=== PATIENT | female | born 1960 | race African-American/Black ===

== ENCOUNTER 2016-06-02 16:43 | Observation (INO) | payer BC, OTHER ==
--- NOTE | 2016-06-02 16:50 | ER Document Report ---
ED Medical Screen (RME) - General Stated Complaint: SLURRED SPEECH,DIFFICULTY TALKING Notes: 55 yo female presents with dizziness, slurred speech and slight expressive aphasia. symptoms started approximately an hour [employer]. + hx/o HTN, no diabetes no facial droop or extremity weakness. speech is thick and deliberate - Related Data Allergies/Adverse Reactions: sulfamethoxazole [From ] Allergy (Verified 11/26/13 21:01) trimethoprim [From Decra] Allergy (Verified 11/26/13 21:01) Past Medical History - Past Medical History Cardiac Medical History: Reports: Hx Hypertension Endocrine Medical History: Reports: Hx Diabetes Mellitus Type 1 - Immunizations Hx Diphtheria, Pertussis, Tetanus Vaccination: Yes
[2016-06-02 17:26] LABS: PARTIAL THROMBOPLASTIN TIME 29.8 SEC (23.5-35.8); PROTHROMBIN TIME 11.9 SEC (11.4-15.4)
[2016-06-02 17:27] LABS: ABSOLUTE BASOPHILS # (AUTO) 0.1 10^3/uL (0.0-0.2); ABSOLUTE EOSINOPHILS # (AUTO) 0.1 10^3/uL (0.0-0.6); ABSOLUTE LYMPHOCYTES (AUTO) 2.9 10^3/uL (0.5-4.7); ABSOLUTE MONOCYTES (AUTO) 0.6 10^3/uL (0.1-1.4); ABSOLUTE NEUT (AUTO) 3.6 10^3/uL (1.7-8.2); BASOPHILS % (AUTO) 0.8 % (0-2); HEMATOCRIT 35.9 % (36.0-47.0); HEMOGLOBIN 11.5 g/dL (12.0-15.5); HGB HCT DIFFERENCE -1.4; LYMPHOCYTES % (AUTO) 39.5 % (13-45); MEAN CORPUSCULAR HEMOGLOBIN 24.2 pg (27.0-33.4); MEAN CORPUSCULAR HGB CONC 32.1 g/dL (32.0-36.0); MEAN CORPUSCULAR VOLUME 75 fl (80-97); MONOCYTES % (AUTO) 8.8 % (3-13); RED BLOOD COUNT 4.77 10^6/uL (3.72-5.28); RED CELL DISTRIBUTION WIDTH 15.1 % (11.5-14.0); SEGMENTED NEUTROPHILS % (AUTO) 48.9 % (42-78); WHITE BLOOD COUNT 7.4 10^3/uL (4.0-10.5)
[2016-06-02 17:45] LABS: ALANINE AMINOTRANSFERASE 37 U/L (9-52); ALBUMIN 4.5 g/dL (3.5-5.0); ALKALINE PHOSPHATASE 86 U/L (38-126); ANION GAP 15 (5-19); ASPARTATE AMINO TRANSFERASE 31 U/L (14-36); BILIRUBIN,TOTAL 0.4 mg/dL (0.2-1.3); BLOOD UREA NITROGEN 12 mg/dL (7-20); CALCIUM 9.4 mg/dL (8.4-10.2); CARBON DIOXIDE 26 mmol/L (22-30); CHLORIDE 97 mmol/L (98-107); CREATINE KINASE 74 U/L (30-135); CREATININE RESULT 0.85 mg/dL (0.52-1.25); GLUCOSE 113 mg/dL (75-110); POTASSIUM 3.8 mmol/L (3.6-5.0); SODIUM 137.5 mmol/L (137-145); TOTAL PROTEIN 8.2 g/dL (6.3-8.2)
[2016-06-02] MEDS ORDERED: BENZTROPINE MESYLATE 1 MG TABLET PO ONE (17:54)
[2016-06-02 17:57] LABS: CREATINE KINASE MB < 0.22 ng/mL (<4.55); TROPONIN I < 0.012 ng/mL
--- NOTE | 2016-06-02 18:07 | ER Document Report ---
ED General - General Chief Complaint: Stroke Like Symptoms Stated Complaint: SLURRED SPEECH,DIFFICULTY TALKING TRAVEL OUTSIDE OF THE [place] IN LAST 30 DAYS: No - HPI Patient complains to provider of: slurred speech difficulty in talking express of aphasia Notes: Patient coming in for stress of aphasia slurred speech. States this happened around 4:00 this afternoon. Patient also states that anytime she has mild difficulty walking. Patient denies any recent head trauma denies any fevers chills nausea vomiting. Patient states has no clear history is positive for hypertension patient also admits to having increasing her Wellbutrin dose that she started today patient is also on Cymbalta and Ativan. Upon my initial examination room patient is alert oriented was stuttering speech. - Related Data Allergies/Adverse Reactions: sulfamethoxazole [From Decra] Allergy (Verified 11/26/13 21:01) trimethoprim [From Decra] Allergy (Verified 11/26/13 21:01) Past Medical History - Social History Smoking Status: Never Smoker Chew tobacco use (# tins/day): No Frequency of alcohol use: None Drug Abuse: None Family History: Reviewed & Not Pertinent Patient has suicidal ideation: No Patient has homicidal ideation: No - Past Medical History Cardiac Medical History: Reports: Hx Hypertension Endocrine Medical History: Reports: Hx Diabetes Mellitus Type 1 Renal/ Medical History: Denies: Hx Peritoneal Dialysis - Immunizations Hx Diphtheria, Pertussis, Tetanus Vaccination: Yes Hx Pneumococcal Vaccination: 01/02/13 Review of Systems - Review of Systems Constitutional: No symptoms reported EENT: No symptoms reported Cardiovascular: No symptoms reported Respiratory: No symptoms reported Gastrointestinal: No symptoms reported Genitourinary: No symptoms reported Female Genitourinary: No symptoms reported Musculoskeletal: No symptoms reported Skin: No symptoms reported Hematologic/Lymphatic: No symptoms reported Neurological/Psychological: Other - Expressive aphasia stuttering speech -: Yes All other systems reviewed and negative Physical Exam - Vital signs Vitals: Resp 16 06/02/16 16:52 Interpretation: Normal - General General appearance: Appears well, Alert - HEENT Head: Normocephalic, Atraumatic Eyes: Normal Pupils: PERRL - Respiratory Respiratory status: No respiratory distress Chest status: Nontender Breath sounds: Normal Chest palpation: Normal - Cardiovascular Rhythm: Regular Heart sounds: Normal auscultation Murmur: No - Abdominal Inspection: Normal Distension: No distension Bowel sounds: Normal Tenderness: Nontender Organomegaly: No organomegaly - Back Back: Normal, Nontender - Extremities General upper extremity: Normal inspection, Nontender, Normal color, Normal ROM , Normal temperature General lower extremity: Normal inspection, Nontender, Normal color, Normal ROM , Normal temperature, Normal weight bearing. No: Uriel's sign - Neurological Neuro grossly intact: Yes Cognition: Normal Orientation: AAOx4 Karnack Coma Scale Eye Opening: Spontaneous Bc Coma Scale Verbal: Oriented Karnack Coma Scale Motor: Obeys Commands Bc Coma Scale Total: 15 Speech: Normal Motor strength normal: LUE, RUE, LLE, RLE Sensory: Normal - Psychological Associated symptoms: Normal affect, Normal mood - Skin Skin Temperature: Warm Skin Moisture: Dry Skin Color: Normal Course - Re-evaluation Re-evalutation: 06/02/16 18:06 Patient presents with expressive aphasia patient also states she was having some difficulty walking at around 1600 hrs. Evaluation patient patient having a score approximately 1. Mostly was due to aphasia. I did discuss thrombolytics however patient declined. Upon reevaluation at this time patient' s symptoms have improved. Am concerned patient may have interaction with some of her medications. Patient was given a dose of Cogentin. Did refer the patient for admission to the hospital service. 06/02/16 20:34 - Vital Signs Vital signs: Temp Pulse Resp BP Pulse Ox 90 27 H 143/93 H 100 06/02/16 17:05 06/02/16 19:00 06/02/16 18:22 06/02/16 19:00 - Laboratory Result Diagrams: 06/02/16 17:13 06/02/16 17:13 Laboratory results interpreted by me: 06/02/16 06/02/16 06/02/16 17:13 17:13 17:18 Hgb 11.5 L Hct 35.9 L MCV 75 L MCH 24.2 L RDW 15.1 H Chloride 97 L Glucose 113 H POC Glucose 113 H Critical Care Note - Critical Care Note Total time excluding time spent on procedures (mins): 35 Comments: Time spent for stroke evaluation Discharge - Discharge Clinical Impression: Anxiety CVA (cerebral vascular accident) Qualifiers: CVA mechanism: unspecified Qualified Code(s): I63.9 - Cerebral infarction, unspecified Hypertension Qualifiers: Hypertension type: essential hypertension Qualified Code(s): I10 - Essential ( primary) hypertension Condition: Good Disposition: ADMITTED OBSERVATION Admitting Provider: [facility] Admitted: IM ED NIH Stroke Scale - NIH Stroke Scale *: 1. NIH scale should be completed with appropriate accompanying assessment tools. *: 2. The NIH should reflect what the patient is capable of doing and should not be coached by the clinician. 1a. Level of Consciousness: 0=Alert;keenly responsive -: 1=Drowsy -: 2=Obtunded -: 3=Coma/unresponsive or reflex to noxious stimuli. 1a. Responses: 0 1b. Orientation Questions: a. What month is it? -: b. How old are you? -: 0=Answers both questions correctly. -: 1=Answers one question correctly or patient is intubated or has orotracheal trauma. -: 2=Answers neither question correctly. 1b. Responses: 0 1c. Response to commands: a. Open and close eyes? -: b. Uc Architect and release hand? -: Credit is given despite weakness. Demonstration of task is permitted. Substitute command if hands cannot be used. -: 0=Performs both tasks correctly -: 1=Performs one task correctly -: 2=Performs neither task correctly 1c. Responses: 0 2. Gaze: Establish eye contact and instruct patient to "Follow my finger" -: 0=Normal -: 1=Partial gaze palsy. Gaze is abnormal in one or both eyes, but where forced deviation or total gaze paresis is not present. -: 2=Forced deviation or total gaze paresis. 2. Responses: 0 3. Visual Garrison: Sees fingers in all four quadrants. -: 0=No visual loss. -: 1=Partial hemianopsia. -: 2=Complete hemianopsia. -: 3=Bilateral hemianopsia (including Cortical blindness) 3. Responses: 0 4. Facial Movement: Instruct patient to: -: a. Show me your teeth -: b. Raise your eyebrows -: c. Close your eyes -: d. Smile -: 0=Normal symmetrical movement -: 1=Minor paralysis (flattened nasolabial fold, asymmetry on smiling). -: 2=Partial paralysis (total or near total paralysis of lower face). -: 3=Complete paralysis of upper and lower face 4. Responses: 0 5. Motor functions (left arm): Alternate sides and extend each arm with palms down (90 degrees if sitting or 45 degrees for supine). -: 0=No drift;limb holds for full 10 seconds. -: 1=Drift; limb holds but drifts down before full 10 seconds, but does not hit bed. -: 2=Some effort against gravity; limb cannot get to or maintain position. -: 3=No effort against gravity; limb falls. -: 4=No movement. -: UN=Amputation, joint fusion, explain in comments. 5. Responses (left arm): 0 5. Motor Functions (right arm): Alternate sides and extend each arm with palms down (90 degrees if sitting or 45 degrees for supine). -: 0=No drift;limb holds for full 10 seconds. -: 1=Drift; limb holds but drifts down before full 10 seconds, but does not hit bed. -: 2=Some effort against gravity; limb cannot get to or maintain position. -: 3=No effort against gravity; limb falls. -: 4=No movement. -: UN=Amputation, joint fusion, explain in comments. 5. Responses (right arm): 0 6. Motor Functions (left leg): With patient lying supine, alternate sides and extend each leg (30 degrees always while supine). -: 0=No drift, leg holds position for full 5 seconds -: 1=Drift; leg falls before full 5 seconds but does not hit bed. -: 2=Some effort against gravity, leg falls to bed but some effort against gravity. -: 3=No effort against gravity, leg falls to bed immediately. -: 4=No movement. -: UN=Amputation, joint fusion; explain in comments. 6. Responses (left leg): 0 6. Motor Functions (right leg): With patient lying supine, alternate sides and extend each leg (30 degrees always while supine). -: 0=No drift, leg holds position for full 5 seconds -: 1=Drift; leg falls before full 5 seconds but does not hit bed. -: 2=Some effort against gravity, leg falls to bed but some effort against gravity. -: 3=No effort against gravity, leg falls to bed immediately. -: 4=No movement. -: UN=Amputation, joint fusion; explain in comments. 6. Responses (right leg): 0 7. Limb Ataxia: With eyes open instruct patient to: -: a. "Touch your finger to your nose". -: b. "Touch your heel to your mcgee" -: 0=Absent -: 1=Present in one limb. -: 2=Present in two limbs. -: UN=Amputation or joint fusion; explain in comments. 7. Responses: 0 8. Sensory: Test sensation using pinprick or noxious stimuli. Test as many body parts as possible. -: 0=Normal;no sensory loss -: 1=Mile to moderate sensory loss (patient feels pin prick but is less sharp on affected side). -: 2=Severe or total sensory loss. 8. Responses: 0 9. Best Language: Instruct patient to: -: a. "Describe what you see in this picture." -: b. "Name the items in this picture." -: c. "Read these sentences." -: 0=No aphasia, normal -: 1=Mild to moderate aphasia. -: 2=Severe aphasia -: 3=Mute, global aphasia, no usable speech or auditory comprehension. 9. Responses: 1 10. Articulation, Dysarthia: Instruct patient to: -: "Read these words" or "Repeat these words" -: 0=Normal -: 1=Mild to moderate; patient may slur some words but can be understood without difficulty. -: 2=Severe; patients speech so slurred as to be unintelligible in the absence of dysphasia. -: UN=Intubated or other physical barrier, explain in comments. 10. Responses: 0 11. Extinction or inattention: 0=No abnormality -: 1= Visual, tactile, auditory, spatial, or personal inattention or extinction to bilateral simulation in one or the sensory modalities. -: 2=Profound raymon-inattention or raymon-inattention to more than one modality; does not recognize own hand. 11. Responses: 0 Total Score: 1
[2016-06-02] MEDS ORDERED: ACETAMINOPHEN 325 MG TABLET PO PRN (18:34)
--- NOTE | 2016-06-02 18:56 | PDOC H&P ---
History of Present Illness Patient complains of: Blurred vision and some expressive aphasia. 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 Patient felt weak and she returned to her desk. She had some difficulty with speaking and symptoms consistent with expressive a fascia. Patient denied have any dysarthria or dysphasia however. She denied any weakness however she did have some right hand weakness when I examined her. The patient's symptoms had improved from when they started approximately 2 hours prior to presentation and continued to improve. Because the improvement was felt that she was not a candidate for TPA in light of her head CT with improving symptoms. The patient was concerned that she recently increased her Wellbutrin to 450 mg daily just yesterday. Patient has been anxious and depressed but reports her mood is same today as it was yesterday. She denies any loss of consciousness. She denies any loss of vision but did have blurred vision. She denied any shortness of breath or chest pain. She denies any loss of consciousness or urinary incontinence. Past Medical History Cardiac Medical History: Reports: Hypertension Pulmonary Medical History: Reports: None EENT Medical History: Reports: None Neurological Medical History: Reports: None Renal/ Medical History: Reports: None Malignancy Medical History: Reports: None GI Medical History: Reports: None Musculoskeltal Medical History: Reports: None Skin Medical History: Reports: None Psychiatric Medical History: Reports: None Traumatic Medical History: Reports: None Hematology: Reports: None Infectious Medical History: Reports: None Past Surgical History Past Surgical History: Reports: Orthopedic Surgery - Cervical spine surgery 2 Social History Information Source: Patient Smoking Status: Never Smoker Frequency of Alcohol Use: Rare Hx Recreational Drug Use: No Drugs: None - Advance Directive Resuscitation Status: Full Code Family History Family History: Patient's mother at age 71. She had coronary artery disease as well as Kawasaki's disease. Father is 74 alive still and has coronary artery disease as well as a pacemaker. Parental Family History Reviewed: Yes Children Family History Reviewed: No Sibling(s) Family History Reviewed.: No Medication/Allergy Home Medications: Meclizine HCl [Antivert 25 mg Tablet] 25 mg PO TID #20 tablet 11/26/13 Allergies/Adverse Reactions: sulfamethoxazole [From Septra] Allergy (Verified 11/26/13 21:01) trimethoprim [From Septra] Allergy (Verified 11/26/13 21:01) Review of Systems Constitutional: ABSENT: chills, fever(s), headache(s), weight gain, weight loss Eyes: PRESENT: visual disturbances - Blurred vision Ears: ABSENT: hearing changes Cardiovascular: ABSENT: chest pain, dyspnea on exertion, edema, orthropnea, palpitations Respiratory: ABSENT: cough, hemoptysis Gastrointestinal: ABSENT: abdominal pain, constipation, diarrhea, hematemesis, hematochezia, nausea, vomiting Genitourinary: ABSENT: dysuria, hematuria Musculoskeletal: ABSENT: joint swelling Integumentary: ABSENT: rash, wounds Neurological: PRESENT: as per HPI Psychiatric: PRESENT: anxiety, depression Endocrine: ABSENT: cold intolerance, heat intolerance, polydipsia, polyuria Hematologic/Lymphatic: ABSENT: easy bleeding, easy bruising Physical Exam General appearance: PRESENT: no acute distress, well-developed, well-nourished Head exam: PRESENT: atraumatic, normocephalic Eye exam: PRESENT: conjunctiva pink, EOMI, PERRLA. ABSENT: scleral icterus Ear exam: PRESENT: normal external ear exam Mouth exam: PRESENT: moist, tongue midline Neck exam: ABSENT: carotid bruit, JVD, lymphadenopathy, thyromegaly Respiratory exam: PRESENT: clear to auscultation juliette. ABSENT: rales, rhonchi, wheezes Cardiovascular exam: PRESENT: RRR. ABSENT: diastolic murmur, rubs, systolic murmur Pulses: PRESENT: normal dorsalis pedis pul Vascular exam: PRESENT: normal capillary refill GI/Abdominal exam: PRESENT: normal bowel sounds, soft. ABSENT: distended, guarding, mass, organolmegaly, rebound, tenderness Rectal exam: PRESENT: deferred Extremities exam: ABSENT: calf tenderness, clubbing, pedal edema Neurological exam: PRESENT: alert, awake, oriented to person, oriented to place , oriented to time, oriented to situation, motor sensory deficit, other - Patient has some mild expressive aphasia. Her strength is 4 out of 5 in the right upper extremity to 5 and 5 metabolic other extremities. Psychiatric exam: PRESENT: appropriate affect Skin exam: PRESENT: dry, intact, warm. ABSENT: cyanosis, rash Results Laboratory Results: 06/02/16 17:13 06/02/16 17:13 06/02/16 06/02/16 17:13 17:13 WBC 7.4 RBC 4.77 Hgb 11.5 L Hct 35.9 L MCV 75 L MCH 24.2 L MCHC 32.1 RDW 15.1 H Plt Count 188 Seg Neutrophils % 48.9 Lymphocytes % 39.5 Monocytes % 8.8 Eosinophils % 2.0 Basophils % 0.8 Absolute Neutrophils 3.6 Absolute Lymphocytes 2.9 Absolute Monocytes 0.6 Absolute Eosinophils 0.1 Absolute Basophils 0.1 Sodium 137.5 Potassium 3.8 Chloride 97 L Carbon Dioxide 26 Anion Gap 15 BUN 12 Creatinine 0.85 Est GFR ( Amer) > 60 Est GFR (Non-Af Amer) > 60 Glucose 113 H Calcium 9.4 Total Bilirubin 0.4 AST 31 ALT 37 Alkaline Phosphatase 86 Total Protein 8.2 Albumin 4.5 06/02/16 06/02/16 17:13 17:13 Creatine Kinase 74 CK-MB (CK-2) < 0.22 Troponin I < 0.012 Impressions: Chest X-Ray 06/02/16 16:53 IMPRESSION: NO ACUTE RADIOGRAPHIC FINDING IN THE CHEST. Head CT 06/02/16 16:53 IMPRESSION: No acute intracranial abnormalities were identified. Other findings as noted above. Assessment & Plan - Diagnosis (1) CVA (cerebral vascular accident) Is this a current diagnosis for this admission?: YesPlan: Patient has some right arm weakness along with expressive aphasia. This is all very suggestive that she has probably had a CVA or TIA. Patient's head CT was unremarkable and her symptoms were improving and she is not a candidate for TPA. We Will start the patient on aspirin and will obtain an MRI, echocardiogram, carotid Dopplers. Patient did just increase her dose of Wellbutrin yesterday and she is concerned this may be related to that increase of medications however we'll treat as if this is a CVA. (2) Hypertension Is this a current diagnosis for this admission?: YesPlan: Patient has been on triamterene as an outpatient. We'll hold for now. (3) Anxiety Is this a current diagnosis for this admission?: YesPlan: Patient just increased her Wellbutrin dose. We'll start back on her psychiatric medications tomorrow. - Time Time Spent: 50 to 70 Minutes - Plan Summary Plan Summary: We'll admit as observation as I anticipate his require less than two midnight hospital stay.
[2016-06-02] MEDS ORDERED: ENOXAPARIN SODIUM INJ 40 MG/0.4 ML DISP.SYRIN SUBCUT ONE (19:30)
[2016-06-02 20:18] LABS: APPEARANCE,URINE CLEAR; BILIRUBIN,URINE NEGATIVE (NEGATIVE); GLUCOSE, URINE NEGATIVE (NEGATIVE); KETONES,URINE NEGATIVE (NEGATIVE); LEUKOCYTE ESTERASE,URINE NEGATIVE (NEGATIVE); NITRITE,URINE NEGATIVE (NEGATIVE); PROTEIN,URINE NEGATIVE (NEGATIVE); URINE SPECIFIC GRAVITY 1.005; UROBILINOGEN,URINE NEGATIVE mg/dL (<2.0)
[2016-06-02 20:31] LABS: URINE BARBITURATES SCREEN NEGATIVE; URINE METHADONE SCREEN NEGATIVE; URINE OPIATES LOW NEGATIVE; URINE PHENCYCLIDINE SCREEN NEGATIVE
--- NOTE | 2016-06-02 20:34 | EKG REPORT ---
SEVERITY:- BORDERLINE ECG - SINUS RHYTHM BORDERLINE T WAVE ABNORMALITIES BORDERLINE PROLONGED QT INTERVAL : Confirmed by: Elan Reynolds MD 02-Jun-2016 20:34:03
[2016-06-02] MEDS ORDERED: ATORVASTATIN CALCIUM 40 MG TABLET PO SCH (22:00)
[2016-06-02] MEDS: FAMOTIDINE 20 MG TABLET PO SCH (22:38)
[2016-06-03 07:23] LABS: ABSOLUTE EOSINOPHILS # (AUTO) 0.2 10^3/uL (0.0-0.6); ABSOLUTE LYMPHOCYTES (AUTO) 2.4 10^3/uL (0.5-4.7); ABSOLUTE MONOCYTES (AUTO) 0.8 10^3/uL (0.1-1.4); ABSOLUTE NEUT (AUTO) 3.6 10^3/uL (1.7-8.2); BASOPHILS % (AUTO) 0.4 % (0-2); EOSINOPHILS % (AUTO) 2.6 % (0-6); HEMATOCRIT 34.3 % (36.0-47.0); HEMOGLOBIN 10.7 g/dL (12.0-15.5); HGB HCT DIFFERENCE -2.2; LYMPHOCYTES % (AUTO) 34.4 % (13-45); MEAN CORPUSCULAR HEMOGLOBIN 23.7 pg (27.0-33.4); MEAN CORPUSCULAR HGB CONC 31.1 g/dL (32.0-36.0); MEAN CORPUSCULAR VOLUME 76 fl (80-97); RED CELL DISTRIBUTION WIDTH 15.2 % (11.5-14.0); SEGMENTED NEUTROPHILS % (AUTO) 51.6 % (42-78)
[2016-06-03 07:43] LABS: CHLORIDE 102 mmol/L (98-107); GLUCOSE 91 mg/dL (75-110); POTASSIUM 4.1 mmol/L (3.6-5.0)
[2016-06-03 07:44] LABS: ANION GAP 11 (5-19); BLOOD UREA NITROGEN 9 mg/dL (7-20); CALCIUM 9.7 mg/dL (8.4-10.2); CARBON DIOXIDE 30 mmol/L (22-30); CREATININE RESULT 0.87 mg/dL (0.52-1.25); SODIUM 142.8 mmol/L (137-145)
[2016-06-03] MEDS ORDERED: ENOXAPARIN SODIUM INJ 40 MG/0.4 ML DISP.SYRIN SUBCUT SCH (08:00)
--- NOTE | 2016-06-03 09:56 | XCELERA REPORT ---
[address] [address] Transthoracic Echocardiogram Report Name: HERNAN GREEN Age: 55 yrs Gender: Female : 1960 Patient Status: Inpatient Patient Location: [id number]\S\336\S\A Study Date: 06/03/2016 07:46 AM Height: 64 in Weight: 215 lb BSA: 2.0 m2 Procedure: A two-dimensional transthoracic echocardiogram with color flow and Doppler was performed. Study Quality: Fair. Reason For Study: CVA History: CVA. Ordering Physician: WERNER ROSE Performed By: John Ann Interpretation Summary There is no obvious cardiac source of embolus noted on this transthoracic echocardiogram. Follow-up with a KATEY is suggested if cardiac source is still suspected. The left ventricle is normal in size. There is normal left ventricular wall thickness. LV EF is 45% Left ventricular systolic function is mildly reduced. Doppler measurements suggest impaired left ventricular relaxation, which is associated with grade I/IV or mild diastolic dysfunction There is mild global hypokinesis of the left ventricle. There is no thrombus. The right ventricle is normal in size and function. The left atrial size is normal. There is no evidence of mitral valve prolapse. There is no mitral valve stenosis. There is a mild amount of mitral regurgitation There is no aortic valve stenosis There is no LVOT obstruction. No aortic regurgitation is present. There is no tricuspid stenosis. There is a mild amount of tricuspid regurgitation Right ventricular systolic pressure is normal. RVSP is 27 mm of Hg , with RA mean of 5. There is no pericardial effusion. There is no obvious cardiac source of embolus noted on this transthoracic echocardiogram. Follow-up with a KATEY is suggested if cardiac source is still suspected MMode/2D Measurements \T\ Calculations RVDd: 2.3 cm LVIDd: 5.2 cm FS: 24.2 % Ao root diam: 2.8 cm IVSd: 0.84 cm LVIDs: 3.9 cm EDV(Teich): 128.7 ml LVPWd: 0.86 cm ESV(Teich): 67.2 ml Ao root area: 6.2 cm2 EF(Teich): 47.8 % LA dimension: 3.6 cm Doppler Measurements \T\ Calculations MV E max marialuisa: MV P1/2t max marialuisa: Ao V2 max: LV V1 max P.0 cm/sec 49.0 cm/sec 146.6 cm/sec 3.0 mmHg MV A max marialuisa: MV P1/2t: 52.8 msec Ao max PG: LV V1 max: 67.1 cm/sec 8.6 mmHg 87.0 cm/sec MV E/A: 0.70 MVA(P1/2t): 4.2 cm2 MV dec slope: 271.6 cm/sec2 MV dec time: 0.19 sec PA V2 max: PI end-d marialuisa: TR max marialuisa: 72.1 cm/sec 118.1 cm/sec 234.8 cm/sec PA max PG: TR max P.1 mmHg 22.1 mmHg Left Ventricle The left ventricle is normal in size. There is normal left ventricular wall thickness. LV EF is 45%. Left ventricular systolic function is mildly reduced. Doppler measurements suggest impaired left ventricular relaxation, which is associated with grade I/IV or mild diastolic dysfunction. There is mild global hypokinesis of the left ventricle. There is no thrombus. There is no ventricular septal defect visualized. Right Ventricle The right ventricle is normal in size and function. Atria The right atrium is normal. The left atrial size is normal. The interatrial septum is intact with no evidence for an atrial septal defect. Mitral Valve There is no evidence of mitral valve prolapse. There is no vegetation seen on the mitral valve. There is no mitral valve stenosis. There is a mild amount of mitral regurgitation. Aortic Valve The aortic valve is trileaflet. The aortic valve opens well. There is no aortic valvular vegetation. There is no aortic valve stenosis. There is no LVOT obstruction. No aortic regurgitation is present. Tricuspid Valve There is no tricuspid stenosis. There is a mild amount of tricuspid regurgitation. Right ventricular systolic pressure is normal. RVSP is 27 mm of Hg , with RA mean of 5. Pulmonic Valve There is no pulmonic valvular stenosis. There is a trace amount of pulmonic regurgitation. Great Vessels The aortic root is normal size. Effusions There is no pericardial effusion. : WERNER ROSE > Linda Edouard
[2016-06-03] MEDS ORDERED: ASPIRIN 325 MG TABLET, ENT COATED PO SCH (10:00)
[2016-06-03 11:14] VITALS: BP 127/63
[2016-06-03] MEDS: FAMOTIDINE 20 MG TABLET PO SCH (11:37)
--- NOTE | 2016-06-03 11:46 | PDOC DISCHARGE SUMMARY ---
General - Admit/Disc Date/PCP Admission Date/Primary Care Provider: 06/02/16 18:34 PRASANTH HODGE MD Discharge Date: 06/03/16 - Discharge Diagnosis (1) CVA (cerebral vascular accident) Is this a current diagnosis for this admission?: YesSummary: Patient had a normal MRI with no residual symptoms consistent with a TIA. The possibility this representing a reaction to her anxiety and going up on her Wellbutrin dose also is considered, but is less likely. Her MRI, carotid Doppler, echocardiogram all were unremarkable. (2) Hypertension Is this a current diagnosis for this admission?: Yes (3) Anxiety Is this a current diagnosis for this admission?: YesSummary: she is instructed to decrease her Wellbutrin back to 300 mg daily as she was doing prior to yesterday. - Additional Information Resuscitation Status: Full Code Discharge Diet: Cardiac Discharge Activity: Activity As Tolerated Home Medications: Acyclovir [Acyclovir 400 mg Tablet] 400 mg PO Q12 06/02/16 Bupropion HCl [Wellbutrin Xl 300mg 24hr Tablet] 300 mg PO QAM 06/02/16 Cyclobenzaprine HCl [Flexeril 5 mg Tablet] 5 mg PO TIDP PRN 06/02/16 Duloxetine HCl [Cymbalta] 120 mg PO DAILY 06/02/16 Ibuprofen [Motrin 800 mg Tablet] 800 mg PO TIDP PRN 06/02/16 Lorazepam [Ativan 1 mg Tablet] 1 mg PO Q8HP PRN 06/02/16 Trazodone HCl [Desyrel] 150 mg PO HSP PRN 06/02/16 Aspirin [Ecotrin 325 mg EC Tablet] 325 mg PO DAILY tabec 06/03/16 Atorvastatin Calcium [Lipitor 40 mg Tablet] 40 mg PO QHS #30 tablet 06/03/16 History of Present Illness History of Present Illness: HERNAN GREEN is a 55 year old female with history of hypertension 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 Patient felt weak and she returned to her desk. She had some difficulty with speaking and symptoms consistent with expressive a fascia. Patient denied have any dysarthria or dysphasia however. She denied any weakness however she did have some right hand weakness when I examined her. The patient's symptoms had improved from when they started approximately 2 hours prior to presentation and continued to improve. Because the improvement was felt that she was not a candidate for TPA in light of her head CT with improving symptoms. The patient was concerned that she recently increased her Wellbutrin to 450 mg daily just yesterday. Patient has been anxious and depressed but reports her mood is same today as it was yesterday. She denies any loss of consciousness. She denies any loss of vision but did have blurred vision. She denied any shortness of breath or chest pain. She denies any loss of consciousness or urinary incontinence. Hospital Course Hospital Course: 55-year-old female who presented with some expressive aphasia and weakness. All of these symptoms have resolved. Patient was admitted as a presumed CVA however she has had complete resolution of her symptoms and the MRI shows no acute event. It's felt that she most likely suffered a TIA as the cause. Patient increased her dose of Wellbutrin from 300-450 mg and given her history of anxiety the possibility this represented an anxiety attack is considered but is thought to be less likely. She is treated with an aspirin daily for the possibility this is a TIA and is discharged home. Physical Exam Vital Signs: Temp Pulse Resp BP Pulse Ox 98.2 F 79 18 127/63 H 100 06/03/16 11:09 06/03/16 11:09 06/03/16 11:09 06/03/16 11:09 06/03/16 11:09 Intake & Output 06/02/16 06/03/16 06/04/16 06:59 06:59 06:59 Intake Total 406 Balance 406 Weight 98.5 kg General appearance: PRESENT: no acute distress Eye exam: PRESENT: conjunctiva pink. ABSENT: scleral icterus Mouth exam: PRESENT: moist, tongue midline Neck exam: ABSENT: carotid bruit, JVD, lymphadenopathy, thyromegaly Respiratory exam: PRESENT: clear to auscultation juliette. ABSENT: rales, rhonchi, wheezes Cardiovascular exam: PRESENT: RRR. ABSENT: diastolic murmur, rubs, systolic murmur GI/Abdominal exam: PRESENT: normal bowel sounds, soft. ABSENT: distended, guarding, mass, organolmegaly, rebound, tenderness Extremities exam: ABSENT: calf tenderness, clubbing, pedal edema Neurological exam: PRESENT: alert, awake, oriented to person, oriented to place , oriented to time, oriented to situation, CN II-XII grossly intact. ABSENT: motor sensory deficit Psychiatric exam: PRESENT: appropriate affect Skin exam: PRESENT: dry, intact, warm. ABSENT: cyanosis, rash Results Laboratory Results: 06/03/16 06:40 06/03/16 06:40 06/02/16 06/03/16 06/03/16 19:30 06:40 06:40 WBC 7.0 RBC 4.50 Hgb 10.7 L Hct 34.3 L MCV 76 L MCH 23.7 L MCHC 31.1 L RDW 15.2 H Plt Count 191 Seg Neutrophils % 51.6 Lymphocytes % 34.4 Monocytes % 11.0 Eosinophils % 2.6 Basophils % 0.4 Absolute Neutrophils 3.6 Absolute Lymphocytes 2.4 Absolute Monocytes 0.8 Absolute Eosinophils 0.2 Absolute Basophils 0.0 Sodium 142.8 Potassium 4.1 Chloride 102 Carbon Dioxide 30 Anion Gap 11 BUN 9 Creatinine 0.87 Est GFR ( Amer) > 60 Est GFR (Non-Af Amer) > 60 Glucose 91 Calcium 9.7 Urine Color STRAW Urine Appearance CLEAR Urine pH 7.0 Ur Specific Finley 1.005 Urine Protein NEGATIVE Urine Glucose (UA) NEGATIVE Urine Ketones NEGATIVE Urine Blood NEGATIVE Urine Nitrite NEGATIVE Ur Leukocyte Esterase NEGATIVE Urine WBC (Auto) 0 Urine RBC (Auto) 0 Impressions: Head MRI 06/02/16 00:00 IMPRESSION: Negative for acute or sub-acute infarction. Age-appropriate exam. Chest X-Ray 06/02/16 16:53 IMPRESSION: NO ACUTE RADIOGRAPHIC FINDING IN THE CHEST. Head CT 06/02/16 16:53 IMPRESSION: No acute intracranial abnormalities were identified. Other findings as noted above. Carotid Doppler Study 06/03/16 00:00 IMPRESSION: NO HEMODYNAMICALLY SIGNIFICANT STENOSIS. Qualifiers PATEINT BEING DISCHARGED WITH ANY OF THE FOLLOWING DIAGNOSIS?: Stroke Stroke Pt being discharged on Anti-thrombolytic therapy?: Yes Stroke Pt being discharged on Anti-coagulation therapy?: No Reason(s) for not prescribing Anti-coagulation therapy:: Contraindicated Stroke Pt being discharged on Statins?: Yes Plan Discharge Plan: Patient is discharged home and will follow up with her primary care doctor in 1 week. Time Spent: Less than 30 Minutes
== END 2016-06-03 12:10 | disposition home or self-care (01) ==
LOC: ER 16:43 → EH 18:34 → UNDOADMOB 19:58 → 3S 06-03 05:08
PROVIDERS: ADMIT Internal Medicine; ATTEND Internal Medicine
DX: I63.9 Cerebral infarction, unspecified (principal); I10 Essential (primary) hypertension; F41.9 Anxiety disorder, unspecified
CPT/HCPCS: 93005; 99291; 36415 ×2; 82553; 82962; 82550; 85025 ×2; 85610; 85730; 80048; 80053; 81001; 84484; 80307; 93306; 93880; 70551; 71010; 70450; 93010; 92523; G0378 ×2; J1650; J3490 ×2

== ENCOUNTER 2017-02-23 17:13 | Emergency (ER) | payer BC, OTHER ==
[2017-02-23] MEDS ORDERED: CEFTRIAXONE INJ 250 MG VIAL IM ONE (17:38)
[2017-02-23] MEDS ORDERED: LIDOCAINE 1% INJ-PF (10 MG/ML) 30 ML SDV INFIL ONE (17:38)
[2017-02-23] MEDS ORDERED: AZITHROMYCIN 250 MG TABLET PO ONE (17:38)
--- NOTE | 2017-02-23 19:08 | ER Document Report ---
ED General - General Chief Complaint: Pelvic Pain Stated Complaint: PELVIC PAIN Time Seen by Provider: 02/23/17 17:38 Mode of Arrival: Ambulatory Information source: Patient Notes: 56 yr old female presents with complaints of vaginal discharge or vomiting recent sexual activity notes last time she was sexually active was 2 months ago. Patient admits to previous STD 30 years ago Patient notes discharge is white with foul odor TRAVEL OUTSIDE OF THE [place] IN LAST 30 DAYS: No - HPI Onset: Other Onset/Duration: Persistent Quality of pain: Achy Severity: Mild Pain Level: 1 Associated symptoms: Other Exacerbated by: Denies Relieved by: Denies Similar symptoms previously: No Recently seen / treated by doctor: No - Related Data Allergies/Adverse Reactions: sulfamethoxazole [From Decra] Allergy (Verified 11/26/13 21:01) trimethoprim [From Septra] Allergy (Verified 11/26/13 21:01) Past Medical History - Social History Smoking Status: Never Smoker Cigarette use (# per day): No Chew tobacco use (# tins/day): No Smoking Education Provided: No Frequency of alcohol use: Occasional Drug Abuse: None Family History: Reviewed & Not Pertinent Patient has suicidal ideation: No Patient has homicidal ideation: No - Past Medical History Cardiac Medical History: Reports: Hx Hypertension Endocrine Medical History: Reports: Hx Diabetes Mellitus Type 1 Renal/ Medical History: Denies: Hx Peritoneal Dialysis Psychiatric Medical History: Reports: Hx Depression Past Surgical History: Reports: Hx Orthopedic Surgery - Cervical spine surgery 2, Hx Tubal Ligation - Immunizations Hx Diphtheria, Pertussis, Tetanus Vaccination: Yes Hx Pneumococcal Vaccination: 01/02/13 Review of Systems - Review of Systems Notes: REVIEW OF SYSTEMS: CONSTITUTIONAL : Denies fever, chills, or sweats. Denies recent illness. EENT: Denies eye, ear, throat, or mouth pain or symptoms. Denies nasal or sinus congestion or discharge. Denies throat, tongue, or mouth swelling or difficulty swallowing. CARDIOVASCULAR: Denies chest pain. Denies palpitations or racing or irregular heart beat. Denies ankle edema. RESPIRATORY: Denies cough, cold, or chest congestion. Denies shortness of breath, difficulty breathing, or wheezing. GASTROINTESTINAL: Denies abdominal pain or distention. Denies nausea, vomiting , or diarrhea. Denies blood in vomitus, stools, or per rectum. Denies black, tarry stools. Denies constipation. GENITOURINARY: Denies difficulty urinating, painful urination, burning, frequency, blood in urine, or discharge. FEMALE GENITOURINARY: Admits vaginal discharge or odor MUSCULOSKELETAL: Denies back or neck pain or stiffness. Denies joint pain or swelling. SKIN: Denies rash, lesions or sores. HEMATOLOGIC : Denies easy bruising or bleeding. LYMPHATIC: Denies swollen, enlarged glands. NEUROLOGICAL: Denies confusion or altered mental status. Denies passing out or loss of consciousness. Denies dizziness or lightheadedness. Denies headache. Denies weakness or paralysis or loss of use of either side. Denies problems with gait or speech. Denies sensory loss, numbness, or tingling. Denies seizures. PSYCHIATRIC: Denies anxiety or stress. Denies depression, suicidal ideation, or homicidal ideation. ALL OTHER SYSTEMS REVIEWED AND NEGATIVE. PHYSICAL EXAMINATION: GENERAL: Well-appearing, well-nourished and in no acute distress. HEAD: Atraumatic, normocephalic. EYES: Pupils equal round and reactive to light, extraocular movements intact, conjunctiva are normal. ENT: Nares patent, oropharynx clear without exudates. Moist mucous membranes. NECK: Normal range of motion, supple without lymphadenopathy LUNGS: Breath sounds clear to auscultation bilaterally and equal. No wheezes rales or rhonchi. HEART: Regular rate and rhythm without murmurs ABDOMEN: Soft, nontender, nondistended abdomen. No guarding, no rebound. No masses appreciated. Female : vaginal discharge white Musculoskeletal: Normal range of motion, no pitting or edema. No cyanosis. NEUROLOGICAL: Cranial nerves grossly intact. Normal speech, normal gait. Normal sensory, motor exams PSYCH: Normal mood, normal affect. SKIN: Warm, Dry, normal turgor, no rashes or lesions noted. Dictation was performed using Xsp[employer] voice recognition software Physical Exam - Vital signs Vitals: Temp Pulse Resp BP Pulse Ox 99.1 F 80 18 143/86 H 97 02/23/17 17:16 02/23/17 17:16 02/23/17 17:16 02/23/17 17:16 02/23/17 17:16 Course - Re-evaluation Re-evalutation: 02/23/17 19:20 Patient is noted to have bacteria on wet prep, she will be treated for bacterial vaginosis otherwise no signs of STD at this time, she was treated nonetheless for it prophylactically Patient has no signs of PID After performing a Medical Screening Examination, I estimate there is LOW risk for ACUTE APPENDICITIS, BOWEL OBSTRUCTION, ACUTE CHOLECYSTITIS, PERFORATED DIVERTICULITIS, INCARCERATED HERNIA, PANCREATITIS, PELVIC INFLAMMATORY DISEASE, PERFORATED ULCER, ECTOPIC , or TUBO-OVARIAN ABSCESS, thus I consider the discharge disposition reasonable. Also, there is no evidence or peritonitis , sepsis, or toxicity. I have reevaluated this patient multiple times and no significant life threatening changes are noted. The patient and I have discussed the diagnosis and risks, and we agree with discharging home with close follow-up with the understanding that symptoms and presentations can change. We also discussed returning to the Emergency Department immediately if new or worsening symptoms occur. We have discussed the symptoms which are most concerning (e.g., bloody stool, fever, changing or worsening pain, vomiting) that necessitate immediate return. - Vital Signs Vital signs: Temp Pulse Resp BP Pulse Ox 99.1 F 80 18 143/86 H 97 02/23/17 17:16 02/23/17 17:16 02/23/17 17:16 02/23/17 17:16 02/23/17 17:16 Discharge - Discharge Clinical Impression: Bacterial vaginosis Condition: Stable Disposition: HOME, SELF-CARE Instructions: Pelvic Pain ([facility]) Prescriptions: Metronidazole [Flagyl 500 mg Tablet] 500 mg PO BID #14 tablet Referrals: [facility] [Provider Group] - Follow up tomorrow
[2017-02-23 19:20] VITALS: BP 121/68
[2017-02-23 20:32] LABS: CHLAM PCR NOT DETECTED (NOT DETECT)
== END 2017-02-23 19:20 | disposition home or self-care (01) ==
LOC: ER 17:13
DX: N76.0 Acute vaginitis (principal); B96.89 Other specified bacterial agents as the cause of diseases classified elsewhere; R10.2 Pelvic and perineal pain; R11.10 Vomiting, unspecified
CPT/HCPCS: 99283; 96372; 87210; 87491; 87591; J3490; J0696

== ENCOUNTER 2018-04-11 18:27 | Emergency (ER) | payer OTHER, BC ==
[2018-04-11 18:54] VITALS: BP 134/86
[2018-04-11] MEDS ORDERED: NAPROXEN 250 MG TABLET PO ONE (19:08)
--- NOTE | 2018-04-11 19:16 | ER Document Report ---
ED Extremity Problem, Lower - General Chief Complaint: Knee Pain Stated Complaint: LEFT KNEE PAIN Time Seen by Provider: 04/11/18 18:50 Mode of Arrival: Wheelchair Information source: Patient Notes: 57-year-old female presented to ED for complaint of left knee pain since about 3 weeks. She states she was seen by [facility]. She states that an x-ray was done with no acute bony injuries noted. She states they told her it looked like she had a torn meniscus and she was supposed to come back on Tuesday for follow-up. She states she was told that they called in a prescription for Mobic. She states they told her to elevate and ice the knee. She states she could not wait till Tuesday to find out what was going on with her knee so she came to the emergency room hoping to get an MRI. She was informed that MRIs are not done in the emergency room unless there is a risk of life or limb. She is able to walk and bend her knee. TRAVEL OUTSIDE OF THE [place] IN LAST 30 DAYS: No - HPI Patient complains to provider of: Injury, Pain Location: Knee Occurred: This afternoon Where: Work Onset/Duration: Better Quality of pain: Achy, Sharp - Only when walking. She states there is no pain at all to palpation anywhere on her knee. Severity: Severe Pain Level: 5 Context: Fell, Other - States when she turned while walking she had a very sharp pain heard a pop and fell Recent injury: Yes Associated symptoms: Painful ambulation Exacerbated by: Movement, Walking Relieved by: Elevation, Ice - Related Data Allergies/Adverse Reactions: sulfamethoxazole [From Decra] Allergy (Verified 11/26/13 21:01) trimethoprim [From Septra] Allergy (Verified 11/26/13 21:01) Past Medical History - General Information source: Patient - Social History Smoking Status: Never Smoker Frequency of alcohol use: Occasional Drug Abuse: None Occupation: Assessing commissary assistant for the [place] Lives with: Alone Family History: Reviewed & Not Pertinent Patient has suicidal ideation: No Patient has homicidal ideation: No - Past Medical History Cardiac Medical History: Reports: Hx Hypertension Pulmonary Medical History: Reports: None EENT Medical History: Reports: None Neurological Medical History: Reports: None Endocrine Medical History: Reports: Other - Prediabetic Renal/ Medical History: Reports: None Malignancy Medical History: Reports: None GI Medical History: Reports: None Musculoskeletal Medical History: Reports Hx Arthritis, Reports Hx Musculoskeletal Deformity, Reports Hx Musculoskeletal Trauma Skin Medical History: Reports None Psychiatric Medical History: Reports: Hx Depression Traumatic Medical History: Reports: None Infectious Medical History: Reports: None Past Surgical History: Reports: Hx Orthopedic Surgery - Cervical spine surgery 2, Hx Tubal Ligation - Immunizations Hx Diphtheria, Pertussis, Tetanus Vaccination: Yes Hx Pneumococcal Vaccination: 01/02/13 Review of Systems - Review of Systems Constitutional: No symptoms reported EENT: No symptoms reported Cardiovascular: No symptoms reported Respiratory: No symptoms reported Gastrointestinal: No symptoms reported Genitourinary: No symptoms reported Female Genitourinary: No symptoms reported Musculoskeletal: Joint pain - Pain to the inside of her right knee. denies: Joint swelling Skin: No symptoms reported Hematologic/Lymphatic: No symptoms reported Neurological/Psychological: No symptoms reported -: Yes All other systems reviewed and negative Physical Exam - Vital signs Vitals: Temp Pulse Resp BP Pulse Ox 98.7 F 84 20 134/86 H 96 04/11/18 18:52 04/11/18 18:52 04/11/18 18:52 04/11/18 18:52 04/11/18 18:52 Interpretation: Normal - General General appearance: Appears well, Alert - HEENT Head: Normocephalic, Atraumatic Eyes: Normal Pupils: PERRL - Respiratory Respiratory status: No respiratory distress Chest status: Nontender Breath sounds: Normal Chest palpation: Normal - Cardiovascular Rhythm: Regular Heart sounds: Normal auscultation Murmur: No - Abdominal Inspection: Normal Distension: No distension Bowel sounds: Normal Tenderness: Nontender Organomegaly: No organomegaly - Back Back: Normal, Nontender - Extremities General upper extremity: Normal inspection, Nontender, Normal color, Normal ROM, Normal temperature General lower extremity: Normal inspection, Normal color, Normal ROM, Normal temperature. No: Uriel's sign Thigh: Normal, Nontender Knee: Pain with ROM, Patellar tendon intact. No: Tender - Tenderness to palpation, Deformity, Dislocation, Drawer's test instability, Ecchymosis, Instability, Joint effusion, Laceration, Laxity with valgus stress, Laxity with varus stress, Popliteal fossa tender, Tender joint line, Unable to bear weight - Able to bear weight but she is able to bear weight Calf: Normal, Nontender - Neurological Neuro grossly intact: Yes Cognition: Normal Orientation: AAOx4 [place] Coma Scale Eye Opening: Spontaneous Bc Coma Scale Verbal: Oriented Bc Coma Scale Motor: Obeys Commands Cb Coma Scale Total: 15 Speech: Normal Motor strength normal: LUE, RUE, LLE, RLE Sensory: Normal - Psychological Associated symptoms: Normal affect, Normal mood, Tearful - States she was scared to go home by herself with the knee injury thought that she would not be able to take care of herself at home. Patient is able to walk but with some tenderness. Patient has a cane that she is walking with. Patient denied any tenderness to any area of the knee - Skin Skin Temperature: Warm Skin Moisture: Dry Skin Color: Normal Course - Re-evaluation Re-evalutation: 04/11/18 20:24 Patient patient stated she had a knee x-ray done at [facility] and was told that it was negative for any bony injuries but they thought she had a torn meniscus. Patient states she came to the emergency room because she did not want to wait to see a if they were going to do an MRI on Tuesday. She states she wanted an MRI right now. I explained to her that we do not do MRIs unless it is an emergency risk to life or limb. She she is able to bear weight on this knee it is just painful. Patient has full range of motion to this knee. She has no laxity to this knee. I did treat the patient with a knee immobilizer and she refused crutches. She states she would just use the cane she had. I did treat her with naproxen and told her to take her Mobic that the [facility] prescribed her. I told her she can follow-up with orthopedics by telephone tomorrow and schedule a follow-up appointment or she can follow-up with [facility] on Tuesday as she had been instructed. Patient verbalized understanding and agreement with plan and she was discharged home. - Vital Signs Vital signs: Temp Pulse Resp BP Pulse Ox 98.7 F 84 20 134/86 H 96 04/11/18 18:52 04/11/18 18:52 04/11/18 18:52 04/11/18 18:52 04/11/18 18:52 Procedures - Immobilization Left Knee Time completed: 19:20 Pre-Proc Neuro Vasc Exam: Normal Immobilizer type: Knee immobilizer Performed by: GRETCHEN Post-Proc Neuro Vasc Exam: Normal Alignment checked and good: Yes Discharge - Discharge Clinical Impression: Left knee injury Qualifiers: Encounter type: initial encounter Qualified Code(s): S89.92XA - Unspecified injury of left lower leg, initial encounter Condition: Stable Disposition: HOME, SELF-CARE Additional Instructions: SUSPECTED INTERNAL KNEE INJURY: The examiner of your injured knee suspects an internal injury to the cartilage or internal ligaments. This must be further investigated by an orthopedic cast specialist. The knee should be protected, ice packed, and elevated while awaiting your follow-up exam by the orthopedist. If there is severe swelling, severe pain, or any new symptoms while awaiting your exam, you should call the orthopedist. (If he/she is unavailable, call us or return for re-examination.) KNEE IMMOBILIZING SPLINT: The knee immobilizing splint will protect the injury while healing begins. This type of splint does not allow the knee to bend at all. No running or sports will be possible. If the splint allows painfree walking, it's giving adequate protection. If there is still significant pain, crutches may be needed as well. Don't do anything that hurts. Adjusted the splint, if necessary. The stiffeners on the sides are attached with Velcro, so they can be easily moved to adjust for thigh and calf size. If you need help with these adjustments, come back. You will lose muscle strength in the thigh while using this splint. The doctor will advise you if it's safe to do isometric knee exercises while you use it. ICE & ELEVATION: Apply ice packs frequently against the painful area. Many different schedules are recommended, such as "20 minutes on, 20 minutes off" or "one hour ice, two hours rest." If you need to work, you may need to go longer between ice treatments. You should plan to have the area ice packed AT LEAST one-fourth of the time. The ice should be applied over the wrap, tape, or splint, or over a layer of cloth -- not directly against the skin. Some ice bags have a built-in cloth and can be put directly on the skin. Your injured part should be elevated as much as possible over the next 48 hours. Try to keep the injury above the level of the heart. Avoid use of the injured area. Elevation and rest will decrease the swelling. If you take Mobic for your pain in your knee you cannot take Aleve, naproxen, Advil, Motrin, or ibuprofen these are all NSAIDs and you cannot take them while taking Mobic. FOLLOW-UP CARE: If you have been referred to a physician for follow-up care, call the physicians office for an appointment as you were instructed or within the next two days. If you experience worsening or a significant change in your symptoms, notify the physician immediately or return to the Emergency Department at any time for re-evaluation. Forms: Elevated Blood Pressure, Return to Work Referrals: PATRICIA MARTEL MD [ACTIVE STAFF] - Follow up as needed
== END 2018-04-11 19:29 | disposition home or self-care (01) ==
LOC: ER 18:27
DX: S89.92XA Unspecified injury of left lower leg, initial encounter (principal); M25.562 Pain in left knee; Z79.899 Other long term (current) drug therapy; W19.XXXA Unspecified fall, initial encounter; I10 Essential (primary) hypertension
CPT/HCPCS: 99283; L1830

== ENCOUNTER 2018-05-17 06:52 | Day surgery (SDC) | payer OTHER, BC ==
--- NOTE | 2018-05-12 13:00 | EKG REPORT ---
SEVERITY:- ABNORMAL ECG - SINUS RHYTHM NONSPECIFIC T ABNORMALITIES, LATERAL LEADS : Confirmed by: Hari Toledo 12-May-2018 12:59:03
--- NOTE | 2018-05-12 13:04 | RADIOLOGY REPORT (SQ) ---
EXAM DESCRIPTION: CHEST PA/LATERAL COMPLETED DATE/TIME: 05/12/2018 12:37 pm REASON FOR STUDY: PRE-OP COMPARISON: 06/02/2016 EXAM PARAMETERS: NUMBER OF VIEWS: two views TECHNIQUE: Digital Frontal and Lateral radiographic views of the chest acquired. RADIATION DOSE: NA LIMITATIONS: none FINDINGS: LUNGS AND PLEURA: No opacities, masses or pneumothorax. No pleural effusion. MEDIASTINUM AND HILAR STRUCTURES: No masses or contour abnormalities. HEART AND VASCULAR STRUCTURES: Heart normal size. No evidence for failure. BONES: No acute findings. HARDWARE: None in the chest. OTHER: Partially visualized hardware anterior lower cervical spine. IMPRESSION: 1. No significant interval changes since the previous examination dated 06/02/2016. No a cute findings. TECHNICAL DOCUMENTATION: JOB ID: [id number] [employer]- All Rights Reserved Reading location - IP/workstation name: [email or web address]
[2018-05-12 13:11] LABS: HEMOGLOBIN 11.7 g/dL (12.0-15.5); MEAN CORPUSCULAR HEMOGLOBIN 24.3 pg (27.0-33.4); MEAN CORPUSCULAR HGB CONC 32.7 g/dL (32.0-36.0); MEAN CORPUSCULAR VOLUME 74 fl (80-97); PLATELET COUNT 227 10^3/uL (150-450); RED BLOOD COUNT 4.83 10^6/uL (3.72-5.28); RED CELL DISTRIBUTION WIDTH 15.5 % (11.5-14.0); WHITE BLOOD COUNT 8.1 10^3/uL (4.0-10.5)
[2018-05-12 13:14] LABS: APPEARANCE,URINE CLEAR; BILIRUBIN,URINE NEGATIVE (NEGATIVE); COLOR,URINE YELLOW; GLUCOSE, URINE NEGATIVE (NEGATIVE); KETONES,URINE NEGATIVE (NEGATIVE); LEUKOCYTE ESTERASE,URINE NEGATIVE (NEGATIVE); NITRITE,URINE NEGATIVE (NEGATIVE); PROTEIN,URINE NEGATIVE (NEGATIVE); URINE SPECIFIC GRAVITY 1.013; UROBILINOGEN,URINE NEGATIVE mg/dL (<2.0)
[2018-05-12 13:31] LABS: ANION GAP 11 (5-19); BLOOD UREA NITROGEN 14 mg/dL (7-20); CALCIUM 9.7 mg/dL (8.4-10.2); CARBON DIOXIDE 29 mmol/L (22-30); CHLORIDE 101 mmol/L (98-107); GLUCOSE 85 mg/dL (75-110); POTASSIUM 4.4 mmol/L (3.6-5.0)
[~2018-05-17 06:52] MED LIST: CEFAZOLIN 2 GM/D5W RTU 2 GM/50 ML RTUPB IV ONE; CEFAZOLIN 2 GM/D5W RTU 2 GM/50 ML RTUPB IV PRN; LACTATED RINGERS 1000 ML IV PRN; LIDOCAINE 0.5% INJ-PF (5 MG/ML) 50 ML SDV SUBCUT PRN
[2018-05-17] MEDS ORDERED: FENTANYL CITRATE INJ/PF 100 MCG/2 ML AMPUL ONE (09:40)
[2018-05-17] MEDS ORDERED: MIDAZOLAM 2 MG/2 ML INJ ONE (09:40)
[2018-05-17] MEDS ORDERED: PROPOFOL INJ 200 MG/20 ML VIAL IV ONE (09:40)
[2018-05-17] MEDS ORDERED: PROMETHAZINE HCL INJ 25 MG/1 ML VIAL IV PRN ×2 (09:55)
[2018-05-17] MEDS ORDERED: MEPERIDINE HCL/PF INJ 25 MG/1 ML DISP.SYRIN IV PRN (09:55)
[2018-05-17] MEDS ORDERED: DIPHENHYDRAMINE HCL 50 MG/ML VIAL IV PRN (09:55)
[2018-05-17] MEDS ORDERED: FENTANYL CITRATE INJ/PF 100 MCG/2 ML AMPUL IV PRN ×3 (09:55)
[2018-05-17] MEDS ORDERED: BUPIVACAINE HCL 0.5%-EPI 1:200000 INJ/PF 30 ML VIAL ONE (10:22)
[2018-05-17] MEDS ORDERED: LIDOCAINE 1% INJ-PF (10 MG/ML) 30 ML SDV ONE (10:22)
--- NOTE | 2018-05-17 10:22 | Discharge Summary ---
Discharge Summary (SDC) - Discharge Final Diagnosis: Left medial meniscal tear Date of Surgery: 05/17/18 Discharge Date: 05/17/18 Condition: Good Treatment or Instructions: Remove compressive wrap on Tuesday. Underlying OpSite dressing can remain intact until you return to the office. Prescriptions: Oxycodone HCl/Acetaminophen [Percocet 5-325 mg Tablet] 1 tab PO Q6 PRN #25 tab PRN Reason: For Pain Referrals: PRASANTH HODGE MD [Primary Care Provider] - Discharge Diet: As Tolerated, Regular Respiratory Treatments at Home: Deep Breathing/Coughing Discharge Activity: Balance Activity w/Rest, No tub bath Home Care Assistance: None Needed Report the Following to Your Physician Immediately: Shortness of Breath, Fever over 101 Degrees, Drainage-Foul Smelling
--- NOTE | 2018-05-17 10:24 | Operative Report ---
Operative Report DATE OF SURGERY: 05/17/18 PREOPERATIVE DIAGNOSIS: Left medial meniscal tear POSTOPERATIVE DIAGNOSIS: Left medial meniscal tear. 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 Intact ACL. 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 Lateral meniscal tear. 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 The knee is insufflated with combination of Marcaine, Xylocaine, and epinephrine. Subsequent medial and lateral infrapat ellar portals are created for the introduction of the arthroscope and debridement instrumentation. The joint is examined in a systematic fashion. Findings as above. Using a basket rongeur a partial medial meniscectomy was performed from approximately 9:00 to 12:00 on the face of the dial. This is then smoothed using mechanical shaver and electric frequency ablation probe. Examination is then moved to the lateral compartment. Using mechanical shaver and abrasion chondroplasty of the lateral tibial plateau was performed for flaking chondral tissue. Subsequently a partial lateral meniscectomy performed from approximately 5:00 to 1:00 on the face of the dial. Instrumentation was removed. Portals reapproximated interrupted nylon. A sterile compressive dressing is applied. The patient's return to the PACU in satisfactory condition.
[2018-05-17] MEDS ORDERED: OXYCODONE HCL IR 5 MG TABLET PO PRN (10:38)
[2018-05-17] MEDS ORDERED: ONDANSETRON 4 MG TAB.RAPDIS PO PRN (10:38)
[2018-05-17] MEDS ORDERED: ONDANSETRON 4 MG TAB.RAPDIS ONE (11:03)
[2018-05-17] MEDS ORDERED: OXYCODONE HCL IR 5 MG TABLET ONE (11:03)
[2018-05-17] MEDS ORDERED: LIDOCAINE 1%/EPINEPHRINE INJ 20 ML VIAL ONE (11:30)
[2018-05-17] MEDS ORDERED: BUPIVACAINE HCL 0.5 % INJ/PF 30 ML SDV ONE (11:30)
[2018-05-17 13:59] VITALS: BP 147/88
== END 2018-05-17 11:55 | disposition home or self-care (01) ==
LOC: OROUT 06:52
PROVIDERS: ATTEND Orthopaedic Surgery
DX: M23.304 Other meniscus derangements, unspecified medial meniscus, left knee (principal); M23.301 Other meniscus derangements, unspecified lateral meniscus, left knee; M22.42 Chondromalacia patellae, left knee; I10 Essential (primary) hypertension; I49.9 Cardiac arrhythmia, unspecified; R73.03 Prediabetes; D64.9 Anemia, unspecified; G62.9 Polyneuropathy, unspecified; Z79.899 Other long term (current) drug therapy
CPT/HCPCS: 93010; 93005; 36415; 82962; 85027; 80048; 81001; 71046; 29880; J2250; J3490 ×2; S0119; J3010; J2704; J0690; 1400